=== PATIENT | female | born 1995 | race Caucasian/White ===

== ENCOUNTER 2017-12-23 17:38 | Emergency (ER) | payer SELFPAY ==
[~2017-12-23] VITALS: Wt 113.4 kg
[2017-12-23] MEDS ORDERED: Motrin,Rufen800 MG PO (20:11)
[2017-12-23] MEDS ORDERED: CYCLOBENZAPRINE10 MG PO (20:11)
== END 2017-12-23 20:38 | disposition home or self-care (01) ==
LOC: ED 17:38
DX: S00.81XA Abrasion of other part of head, initial encounter (principal); S60.512A Abrasion of left hand, initial encounter; S60.511A Abrasion of right hand, initial encounter; M54.5 Low back pain; M54.2 Cervicalgia; R51 Headache; V86.59XA Driver of other special all-terrain or other off-road motor vehicle injured in nontraffic accident, initial encounter; Y93.55 Activity, bike riding; Y92.89 Other specified places as the place of occurrence of the external cause; Y99.9 Unspecified external cause status